=== PATIENT | female | born 1960 | race Caucasian/White ===

== ENCOUNTER 2017-04-19 21:21 | Emergency (ER) | payer OTHER ==
[~2017-04-19] VITALS: Ht 162.6 cm; Wt 51.4 kg
[~2017-04-19 21:21] MED LIST: CARB200T16 PO; CITA-48 PO; CLON.5 PO; CLON1 PO; IBUP400 PO; MELO15TA2 PO; ORPH100T PO
[2017-04-19] MEDS ORDERED: IOHEXOL 350 MG/ML 10 ML VIAL (for RAD DIAG) IVCONTRAST ONE (21:22)
[2017-04-19 21:27] VITALS: BP 135/63; PULSE 66; RESP 16; TEMP 98; O2SAT 96
[2017-04-19 22:25] LABS: AUTOMATED NEUTROPHIL # 11.3 TH/MM3 (1.8-7.7); BASOPHIL % 0.2 % (0.0-2.0); EOSINOPHIL # 0.1 TH/MM3 (0-0.4); EOSINOPHIL % 0.5 % (0.0-4.0); HEMATOCRIT 35.9 % (35.0-46.0); HEMOGLOBIN 11.8 GM/DL (11.6-15.3); LYMPH % 10.8 % (9.0-44.0); LYMPHOCYTE # 1.5 TH/MM3 (1.0-4.8); MEAN CELL VOLUME 93.3 FL (80.0-100.0); MEAN CORPUSCULAR HEMOGLOBIN 30.7 PG (27.0-34.0); MEAN CORPUSCULAR HGB CONC 32.9 % (32.0-36.0); MEAN PLATELET VOLUME 7.6 FL (7.0-11.0); MONO % 7.5 % (0.0-8.0); MONOCYTE # 1.1 TH/MM3 (0-0.9); PLATELET COUNT 345 TH/MM3 (150-450); RED BLOOD COUNT 3.85 MIL/MM3 (4.00-5.30); RED CELL DISTRIBUTION WIDTH 12.4 % (11.6-17.2)
[2017-04-19] MEDS ORDERED: KETOROLAC TROMETHAMINE 30 MG/ML (IVP) VIAL IV PUSH ONE (22:30)
[2017-04-19 22:32] LABS: CHLORIDE 94 MEQ/L (98-107); SODIUM (NA) 128 MEQ/L (136-145)
[2017-04-19 22:35] LABS: BICARBONATE 26.2 MEQ/L (21.0-32.0); BLOOD UREA NITROGEN 11 MG/DL (7-18); CALCIUM 8.3 MG/DL (8.5-10.1); GLUCOSE,RANDOM 128 MG/DL (74-106)
[2017-04-19 22:38] LABS: PROTHROMBIN TIME - PATIENT 10.4 SEC (9.8-11.6)
[2017-04-19 22:39] LABS: CREATININE 0.78 MG/DL (0.50-1.00); GLOMERULAR FILTRATION RATE 76 ML/MIN (>89)
--- NOTE | 2017-04-19 22:56 | PD ---
HPI Chief Complaint: Fall Time Seen by Provider: 21:30 Travel History International Travel<30 days: No Contact w/Intl Traveler<30days: No Traveled to known affect area: No History of Present Illness HPI 56-year-old female presents to the emergency department for complaint of left buttock and hip pain status post fall off of a 4 foot ladder approximately 3 hours prior to arrival to the emergency department. PFSH Past Medical History ADHD: Yes (TAKES MED) Anxiety: Yes Depression: Yes Respiratory: Yes Seizures: Yes Tetanus Vaccination: Unknown Influenza Vaccination: No ?: Not Past Surgical History Hysterectomy: Yes Joint Replacement: Yes (RT KNEE REPLACEMENT APX 2 YEARS AGO) Thoracic Surgery: Yes (breast implants) Other Surgery: Yes (6 lumpectomies to left breast, cryotherapy to uterus ,brow lift,rhioplasty,) Social History Alcohol Use: No Tobacco Use: Yes (1PPD) Substance Use: Yes (MARIJUANA) Allergies-Medications (Allergen,Severity, Reaction): Coded Allergies: codeine (Unverified Allergy, Severe, HIVES, 12/11/16) erythromycin base (Unverified Allergy, Severe, HIVES AND SOB, 12/11/16) hydromorphone (Unverified Allergy, Mild, EXTREME ITCHY, 12/11/16) morphine (Unverified Allergy, Mild, EXTREMELY ITCHY, 12/11/16) Reported Meds & Prescriptions Reported Meds & Active Scripts Active Tramadol (Tramadol HCl) 50 Mg Tab 50 Mg PO Q6H PRN Motrin 400 mg Tab (Ibuprofen) 400 Mg Tab 400 Mg PO Q6H PRN Norflex (Orphenadrine Citrate) 100 Mg Angela 100 Mg PO BID Reported Citalopram Hydrobromide 40 Mg Tab 20 Mg PO BID Mobic (Meloxicam) 15 Mg Tab 15 Mg PO HS Klonopin (Clonazepam) 1 Mg Tab 1 Mg PO HS Klonopin (Clonazepam) 0.5 Mg Tab 0.5 Mg PO TID Tegretol (Carbamazepine) 200 Mg Tab 400 Mg PO BID Physical Exam Narrative GENERAL: Well developed well nourished female in no distress no respiratory distress SKIN: Warm and dry. HEAD: Normocephalic. EYES: No scleral icterus. No injection or drainage. NECK: Supple, trachea midline. No JVD or lymphadenopathy. CARDIOVASCULAR: Regular rate and rhythm without murmurs, gallops, or rubs. RESPIRATORY: Breath sounds equal bilaterally. No accessory muscle use. GASTROINTESTINAL: Abdomen soft, non-tender, nondistended. Buttock left cheek large firm tender hematoma. MUSCULOSKELETAL: No cyanosis, or edema. BACK: Nontender without obvious deformity. No CVA tenderness. Data Data Last Documented VS Vital Signs Date Time Temp Pulse Resp B/P (MAP) Pulse Ox O2 Delivery O2 Flow Rate FiO2 04/20/17 00:47 87 18 110/50 (70) 99 04/19/17 21:27 98.0 Orders Orders Basic Metabolic Panel (Bmp) (04/19/17 22:03) Complete Blood Count With Diff (04/19/17 22:03) Prothrombin Time / Inr (Pt) (04/19/17 22:03) Act Partial Throm Time (Ptt) (04/19/17 22:03) Type And Screen (04/19/17 22:03) Urinalysis - C+S If Indicated (04/19/17 22:03) Ct Brain W/O Iv Contrast(Rout) (04/19/17 22:03) Ct Cerv Spine W/O Contrast (04/19/17 22:03) Ct Abd/Pel W Iv Contrast(Rout) (04/19/17 22:03) Iv Access Insert/Monitor (04/19/17 22:03) ^ Saline Lock (04/19/17 22:03) Ketorolac Inj (Toradol Inj) (04/19/17 22:30) Alcohol (Ethanol) (04/19/17 22:15) Iohexol 350 Inj (Omnipaque 350 Inj) (04/19/17 21:22) Sodium Chlorid 0.9% 500 Ml Inj (Ns 500 M (04/20/17 00:15) Ed Discharge Order (04/20/17 00:17) Labs Laboratory Tests Test 04/19/17 22:15 04/19/17 23:00 White Blood Count 14.0 TH/MM3 Red Blood Count 3.85 MIL/MM3 Hemoglobin 11.8 GM/DL Hematocrit 35.9 % Mean Corpuscular Volume 93.3 FL Mean Corpuscular Hemoglobin 30.7 PG Mean Corpuscular Hemoglobin Concent 32.9 % Red Cell Distribution Width 12.4 % Platelet Count 345 TH/MM3 Mean Platelet Volume 7.6 FL Neutrophils (%) (Auto) 81.0 % Lymphocytes (%) (Auto) 10.8 % Monocytes (%) (Auto) 7.5 % Eosinophils (%) (Auto) 0.5 % Basophils (%) (Auto) 0.2 % Neutrophils # (Auto) 11.3 TH/MM3 Lymphocytes # (Auto) 1.5 TH/MM3 Monocytes # (Auto) 1.1 TH/MM3 Eosinophils # (Auto) 0.1 TH/MM3 Basophils # (Auto) 0.0 TH/MM3 CBC Comment DIFF FINAL Differential Comment Prothrombin Time 10.4 SEC Prothromb Time International Ratio 1.0 RATIO Activated Partial Thromboplast Time 26.8 SEC Blood Urea Nitrogen 11 MG/DL Creatinine 0.78 MG/DL Random Glucose 128 MG/DL Calcium Level 8.3 MG/DL Sodium Level 128 MEQ/L Potassium Level 3.6 MEQ/L Chloride Level 94 MEQ/L Carbon Dioxide Level 26.2 MEQ/L Anion Gap 8 MEQ/L Estimat Glomerular Filtration Rate 76 ML/MIN Ethyl Alcohol Level LESS THAN 3 MG/DL Urine Color YELLOW Urine Turbidity CLEAR Urine pH 6.0 Urine Specific Aldrich 1.015 Urine Protein NEG mg/dL Urine Glucose (UA) NEG mg/dL Urine Ketones NEG mg/dL Urine Occult Blood TRACE Urine Nitrite NEG Urine Bilirubin NEG Urine Leukocyte Esterase NEG Urine RBC 3-5 /hpf Urine WBC 0-2 /hpf Urine Squamous Epithelial Cells 0-5 /hpf Urine Bacteria OCC /hpf Microscopic Urinalysis Comment CULT NOT INDICATED MDM Medical Decision Making Medical Screen Exam Complete: Yes Emergency Medical Condition: Yes Medical Record Reviewed: Yes Interpretation(s) EKG normal sinus rhythm rate 77 acute left axis deviation and incomplete right bundle-branch block no acute ST elevation injury pattern or ectopy noted Differential Diagnosis Buttock contusion buttock hematoma pelvic fracture minor closed head injury cervical sprain strain Narrative Course IV access obtained specimen collected and sent for resulting imaging studies ordered Patient administered IV fluids and Toradol times one dose Imaging study reveals 6 cm hematoma of the buttock cheek no acute intra- abdominal pelvic process other than chronic dilatation of the pancreatic duct CT cervical spine shows no fracture CT brain noncontrast reveals no acute abnormalities Patient informed of imaging results lab results in stable for outpatient management Diagnosis Primary Impression: Traumatic hematoma of buttock Additional Impression: Pancreatic duct dilated Referrals: Primary Care Physician call for appointment Patient Instructions: General Instructions Additional Instructions: Apply ice pack Take acetaminophen/Tylenol as tolerated for minor pain and prescription tramadol as needed for pain greater than 5/10 Follow-up with your primary care provider Return to the emergency department for any concerns or change condition Med/Other Pt SpecificInfo: Prescription(s) given Scripts Tramadol (Tramadol) 50 Mg Tab 50 MG PO Q6H Y for PAIN, #7 TAB 0 Refills Prov: Ema Chapin MD 04/20/17 Disposition: 01 DISCHARGE HOME Condition: Stable Ema Chapin MD Apr 19, 2017 22:56
[2017-04-19 23:17] LABS: BILIRUBIN, URINE NEG (NEG); BLOOD, URINE TRACE (NEG); GLUCOSE,URINE NEG (NEG); KETONE, URINE NEG (NEG); NITRITE,URINE NEG (NEG); URINE LEUKOCYTE ESTERASE NEG (NEG)
[2017-04-19 23:28] LABS: URINE COLOR YELLOW (YELLW/STRAW)
[2017-04-19 23:29] LABS: BACTERIA, URINE OCC /hpf; SQUAMOUS EPITHELIAL CELL URINE 0-5 /hpf (0-5); WBC, URINE 0-2 /hpf (0-5)
--- NOTE | 2017-04-19 23:30 | RADRPT ---
EXAM DATE/TIME: 04/19/2017 23:07 [facility] COMPARISON: No previous studies available for comparison. INDICATIONS : Status post fall today. No LOC RADIATION DOSE: 48.59 CTDIvol (mGy) MEDICAL HISTORY : Chronic obstructive pulmonary disease. Seizures. SURGICAL HISTORY : Hysterectomy. breast implants ENCOUNTER: Initial ACUITY: 1 day PAIN SCALE: 0/10 LOCATION: cranial TECHNIQUE: Multiple contiguous axial images were obtained of the head. Using automated exposure control and adj ustment of the mA and/or kV according to patient size, radiation dose was kept as low as reasonably a chievable to obtain optimal diagnostic quality images. DICOM format image data is available electro nically for review and comparison. FINDINGS: CEREBRUM: The ventricles are normal for age. No evidence of midline shift, mass lesion, hemorrhage or acute in farction. No extra-axial fluid collections are seen. POSTERIOR FOSSA: The cerebellum and brainstem are intact. The 4th ventricle is midline. The cerebellopontine angle i s unremarkable. EXTRACRANIAL: The visualized portion of the orbits is intact. SKULL: The calvaria is intact. No evidence of skull fracture. CONCLUSION: Normal examination. Baldev Guzman MD on April 19, 2017 at 23:26 Board Certified Radiologist. This report was verified electronically.
[2017-04-19 23:35] VITALS: RESP 18
--- NOTE | 2017-04-19 23:39 | RADRPT ---
EXAM DATE/TIME: 04/19/2017 23:07 [facility] COMPARISON: No previous studies available for comparison. INDICATIONS : Status post fall today. No LOC RADIATION DOSE: 21.96 CTDIvol (mGy) MEDICAL HISTORY : Chronic obstructive pulmonary disease. Seizures. SURGICAL HISTORY : Hysterectomy. breast implants ENCOUNTER: Initial ACUITY: 1 day PAIN SCALE: 0/10 LOCATION: neck TECHNIQUE: Volumetric scanning of the cervical spine was performed. Multiplanar reconstructions in the sagittal, coronal and oblique axial planes were performed. Using automated exposure control and adjustment o f the mA and/or kV according to patient size, radiation dose was kept as low as reasonably achievable to obtain optimal diagnostic quality images. DICOM format image data is available electronically f or review and comparison. FINDINGS: There is slight undulating reversal of normal cervical lordosis. There is no significant spondylolist hesis. Severe degenerative changes present most notably at C5-6 where significant disc space narrowin g is present with ventral and dorsal endplates and accompanying broad disc protrusion. Broad disc pro trusion is also present at C6-7. There is no evidence of fracture. No bony canal or foraminal comprom ise is identified. There is no evidence of paraspinal mass or hematoma. CONCLUSION: No acute bony injury in the cervical spine. Significant degenerative changes. Baldev Guzman MD on April 19, 2017 at 23:34 Board Certified Radiologist. This report was verified electronically.
--- NOTE | 2017-04-19 23:45 | RADRPT ---
EXAM DATE/TIME: 04/19/2017 23:12 [facility] COMPARISON: CT ABDOMEN & PELVIS W CONTRAST, November 18, 2014, 14:56. INDICATIONS : Fall today hit buttocks area. IV CONTRAST: 96 cc Omnipaque 350 (iohexol) IV ORAL CONTRAST: No oral contrast ingested. RADIATION DOSE: 3.92 CTDIvol (mGy) MEDICAL HISTORY : Chronic obstructive pulmonary disease. Seizures. SURGICAL HISTORY : Hysterectomy.breast implants ENCOUNTER: Initial ACUITY: 1 day PAIN SCALE: 5/10 LOCATION: pelvis TECHNIQUE: Volumetric scanning of the abdomen and pelvis was performed. Using automated exposure control and ad justment of the mA and/or kV according to patient size, radiation dose was kept as low as reasonably achievable to obtain optimal diagnostic quality images. DICOM format image data is available electro nically for review and comparison. FINDINGS: LOWER LUNGS: The visualized lower lungs are clear. LIVER: Homogeneous density without lesion. There is no dilation of the biliary tree. No calcified gallston es. SPLEEN: Normal size without lesion. PANCREAS: Significant dilatation of the pancreatic duct which was present previously, however is increased. No focal mass identified. KIDNEYS: Normal in size and shape. There is no mass, stone or hydronephrosis. ADRENAL GLANDS: Within normal limits. VASCULAR: There is no aortic aneurysm. BOWEL/MESENTERY: Colonic diverticulosis. No abnormal dilatation, wall thickening or focal inflammatory changes appreci ated. ABDOMINAL WALL: Within normal limits. RETROPERITONEUM: There is no lymphadenopathy. BLADDER: No wall thickening or mass. REPRODUCTIVE: Uterus surgically absent. No evidence of pelvic mass or free fluid. INGUINAL: There is no lymphadenopathy or hernia. MUSCULOSKELETAL: 6 cm hematoma in the soft tissues of the medial left buttock with moderate surrounding induration. No evidence of fracture. CONCLUSION: Medial left buttock soft tissue hematoma. Increasingly prominent pancreatic ductal dilatation Baldev Guzman MD on April 19, 2017 at 23:38 Board Certified Radiologist. This report was verified electronically.
[2017-04-20] MEDS ORDERED: SODIUM CHLORID 0.9% 500 ML INJ 500 ML IV ONE (00:15)
[2017-04-20] MEDS ORDERED: TRAM50TA PO (00:20)
[2017-04-20 00:47] VITALS: BP 110/50
== END 2017-04-20 00:49 | disposition home or self-care (01) ==
LOC: PHEFT 21:21
DX: S30.0XXA Contusion of lower back and pelvis, initial encounter (principal); K86.89 Other specified diseases of pancreas; F12.90 Cannabis use, unspecified, uncomplicated; W11.XXXA Fall on and from ladder, initial encounter; Z72.0 Tobacco use
CPT/HCPCS: 70450; 72125; 74177; 80048; 80307; 81001; 85025; 85610; 85730; 86850; 86900; 86901; 96374; 99285; J1885; Q9967